=== PATIENT | male | born 1975 | race Caucasian/White ===

== ENCOUNTER 2025-06-26 17:25 | Emergency (ER) | payer SELFPAY ==
[2025-06-26] MEDS: Amoxicillin/Clavulanate K 875-125 MG Tab PO ONE (19:13)
[2025-06-26] MEDS: Acetaminophen/oxyCODONE 325-5 MG Tab PO ONE (19:13)
[2025-06-26] MEDS: Benzocaine 20% Topical Spray UD MUCMEM ONE (19:14)
[2025-06-26] MEDS: Lidocaine 2% Viscous Solution 15 ML UD PO ONE (19:14)
== END 2025-06-26 19:58 | disposition home or self-care (01) ==
LOC: MW.ED 17:25
DX: K04.7 Periapical abscess without sinus (principal); F17.200 Nicotine dependence, unspecified, uncomplicated; Z79.899 Other long term (current) drug therapy
CPT/HCPCS: 41800; 99282; A9270; J3490; 10060; 99283